=== PATIENT | female | born 1990 | race Caucasian/White ===

== ENCOUNTER 2022-06-30 22:46 | Emergency (ER) | payer OTHER, SELFPAY ==
[2022-06-30 23:04] VITALS: BP 130/85; PULSE 104; RESP 20; TEMP 37.2; O2SAT 98; BMI 38.8
--- NOTE | 2022-07-01 00:39 | CRLHL7_ITS ---
For Patients: As a result of the Century Cures Act, medical imaging exams and procedure reports are released immediately into your electronic medical record. You may view this report before your referring provider. If you have questions, please contact your health care provider. INDICATION: Rectal bleeding.. TECHNIQUE: CT abdomen and pelvis without contrast. COMPARISON: January 30, 2021. FINDINGS: Lower chest: Unremarkable. Liver: Normal in size and attenuation. No suspicious masses. Gallbladder and bile ducts: No stones or inflammation. No biliary dilatation. Pancreas: Unremarkable. No mass or inflammation. Spleen: Normal in size. No masses. Few scattered calcifications likely related to prior granulomatous disease. Adrenal glands: Normal in size. No nodules. Kidneys: Normal in size. No suspicious masses, or hydronephrosis. Punctate nonobstructing stone at the inferior pole of the right kidney. GI tract: Unremarkable. Normal in caliber. No sign of mass or inflammation. Normal appendix. Vasculature: Abdominal aorta is normal in caliber. Lymph nodes: No lymphadenopathy. Peritoneum/Abdominal Wall: Unremarkable. No sign of mass or infiltration. No free air or significant free fluid. Pelvis: Unremarkable. No pelvic masses. Bones: Unremarkable for age. IMPRESSION: No findings to explain rectal bleeding. Punctate nonobstructing stone in the right kidney. Please note that all CT scans at this facility use dose modulation, iterative reconstruction, and/or weight-based dosing when appropriate to reduce radiation dose to as low as reasonably achievable. Dictated by Kaitlyn Soriano MD @ 07/01/2022 1:53:33 AM (Electronically Signed)
--- NOTE | 2022-07-01 00:40 | ED.GENADULT ---
HPI - General Adult General Chief complaint: Abdominal Pain Stated complaint: Abdominal pain and bloody stool Time Seen by Provider: 07/01/22 00:25 History of Present Illness HPI narrative: Patient is a 32-year-old female who presents to the emergency department about 11:00 p.m. with complaints of two days of intermittent abdominal pain and a couple of episodes of bright red rectal bleeding. The bleeding began after a large hard bowel movement two days ago. She is generally not constipated. She has had couple other stools with some bright red blood and blood on the paper when she wipes. No melena. She has some nausea but no vomiting. No fevers or chills. She has continued to eat and drink well. There is some pain with defecation. No symptoms of anemia. Related Data Home Medications Medication Instructions Recorded Confirmed No Known Home Medications 06/30/22 06/30/22 Allergies Allergy/AdvReac Type Severity Reaction Status Date / Time No Known Drug Allergies Allergy Verified 06/30/22 22:57 PFSH PFSH Social History Smoking Status: Never smoker Do you use any of these nicotine containing products: None Second hand tobacco smoke exposure: No How often do you have a drink containing alcohol: monthly or less How many standard drinks containing alcohol do you have on a typical day: 1 or 2 How often do you have six or more drinks on one occasion: Never AUDIT-C Alcohol total score: 1 Non-prescribed substance use: denies use service: No Exam Narrative: Exam Narrative: Vitals noted. HEENT: Conjunctiva clear. Neck is supple without adenopathy, thyromegaly, carotid bruit. Lungs: Clear to auscultation in all marti. No wheezes, rales, rhonchi. Heart: Regular rate and rhythm without murmur. Abdomen: Obese, Soft and nontender. No guarding, rigidity, rebound. Bowel sounds are normal. No palpable masses. Extremities: No cyanosis or edema. Good distal pulses. Skin: No abnormalities noted of the exposed skin. Neurologic: Awake, alert, fully oriented. Neurologic exam is nonfocal. Const: Vital Signs, click to edit/add: Vital Signs - 24 hr 06/30/22 23:04 Temperature 98.9 F Pulse Rate [Pulse Oximeter] 104 H Respiratory Rate 20 Blood Pressure [Ri ght Forearm] 130/85 Pulse Oximetry 98 Oxygen Delivery Me thod Room Air Course Course Hospital Course: Patient is seen and examined. Labs and CT of her abdomen are ordered. Reevaluation(s) Reevaluation #1: CT is normal. Labs are also normal. No evidence of bleeding while here in the department. She asked for and received a work note for today. Vital Signs Vital signs: Initial Vital Signs Temperature 98.9 F 06/30/22 23:04 Temperature Source Temporal Artery Scan 06/30/22 23:04 Pulse Rate 104 H 06/30/22 23:04 Pulse Rhythm 06/30/22 23:04 Respiratory Rate 20 06/30/22 23:04 Blood Pressure 130/85 06/30/22 23:04 Blood Pressure Mean 100 06/30/22 23:04 Blood Pressure Position Supine 06/30/22 23:04 Pulse Oximetry 98 06/30/22 23:04 Oxygen Delivery Method 06/30/22 23:04 Vital Signs Temperature 98.9 F 06/30/22 23:04 Pulse Rate 104 H 06/30/22 23:04 Respiratory Rate 20 06/30/22 23:04 Blood Pressure 130/85 06/30/22 23:04 Pulse Oximetry 98 06/30/22 23:04 Oxygen Delivery Method 06/30/22 23:04 Temperature 98.9 F 06/30/22 23:04 Pulse Rate 104 H 06/30/22 23:04 Respiratory Rate 20 06/30/22 23:04 Blood Pressure 130/85 06/30/22 23:04 Pulse Oximetry 98 06/30/22 23:04 Oxygen Delivery Method 06/30/22 23:04 Medical Decision Making Lab Data Labs: Lab Results 07/01/22 07/01/22 Range/Units 00:45 00:45 WBC 13.98 H (4.50-11.00) K/uL RBC 4.44 (4.00-5.20) m/uL Hgb 12.4 (12.0-16.0) gm/dL Hct 37.9 (33.0-51.0) % MCV 85 (80-100) fL MCH 28 (26-34) pg MCHC 33 (32-36) gm/dL RDW Coeff of Jamel 13.1 (11.5-15.5) % Plt Count 412 (140-440) K/uL Neut % (Auto) 74.6 H (42.0-72.0) % Lymph % (Auto) 19.5 L (20-44) % Sterling % (Auto) 5.4 (0.0-11.0) % Eos % (Auto) 0.3 (0.0-7.0) % Baso % (Auto) 0.1 (0.0-3.0) % Neut # (Auto) 10.40 H (1.7-7.0) K/uL Lymph # (Auto) 2.70 (0.90-2.90) K/uL Sterling # (Auto) 0.80 (0.00-0.90) K/UL Eos # (Auto) 0.00 (0.00-0.50) K/uL Baso # (Auto) 0.00 (0.00-0.30) K/uL Abs Immat Gran (auto) 0.02 (0.00-0.30) K/uL Sodium 139 (135-149) mmol/L Potassium 3.7 (3.6-5.1) mmol/L Chloride 104 (96-114) mmol/L Carbon Dioxide 26 (20-32) mmol/L BUN 8 (5-24) mg/dL Creatinine 0.7 (0.5-1.5) mg/dL Estimated Creat Clear 111.16 Estimated GFR 117 ml/min Glucose 124 H (60-115) mg/dL Calcium 9.1 (8.4-10.6) mg/dL Total Bilirubin 0.2 (0.1-1.5) mg/dL Direct Bilirubin 0.2 (0.0-0.5) mg/dL AST 19 (12-35) U/L ALT 16 (4-35) U/L Alkaline Phosphatase 97 (40-150) U/L C-Reactive Protein 1.2 H (0.5-1.0) mg/dL Total Protein 7.8 (6.0-8.3) g/dL Albumin 4.1 (3.3-5.0) g/dL Discharge Plan Discharge Clinical Impression: BRBPR (bright red blood per rectum), Abdominal pain Patient Disposition: Home, Self-Care Condition: Improved Additional Instructions: Consider an [id number] stool softener and fiber supplement. Push fluids. Avoid straining. If bleeding persists may need to see surgeon and consider a colonoscopy. Activity Level: No Restrictions Discharge Diet: Regular Prescriptions: No Action No Known Home Medications Follow Up/Referrals: Sai Blake MD [Primary Care Provider] - Stand Alone Forms: [employer] Info Instructions
[2022-07-01 00:54] LABS: Basophils Percent Auto 0.1 % (0.0-3.0); Eosinophils Percent Auto 0.3 % (0.0-7.0); Hematocrit 37.9 % (33.0-51.0); Hemoglobin* 12.4 gm/dL (12.0-16.0); Immature Granulocytes Abs Auto 0.02 K/uL (0.00-0.30); Lymphocytes Percent Auto 19.5 % (20-44); Mean Corpuscular HGB Conc 33 gm/dL (32-36); Mean Corpuscular Hemoglobin 28 pg (26-34); Mean Corpuscular Volume 85 fL (80-100); Monocytes Percent Auto 5.4 % (0.0-11.0); Neutrophils Percent Auto 74.6 % (42.0-72.0); Platelet Count* 412 K/uL (140-440); RDW Coefficient of Variation % 13.1 % (11.5-15.5); Red Blood Count 4.44 m/uL (4.00-5.20); White Blood Count* 13.98 K/uL (4.50-11.00)
[2022-07-01 00:57] LABS: Slide Review Reflex No
[2022-07-01 01:00] VITALS: BP 112/71; PULSE 91; RESP 16; O2SAT 98
[2022-07-01 01:09] LABS: Albumin* 4.1 g/dL (3.3-5.0); Chloride* 104 mmol/L (96-114); Sodium* 139 mmol/L (135-149)
[2022-07-01 01:10] LABS: Potassium* 3.7 mmol/L (3.6-5.1)
[2022-07-01 01:11] LABS: Creatinine* 0.7 mg/dL (0.5-1.5); Est. Creatinine Clearance* 111.16; Estimated Glomerular Filt Rate 117 ml/min
[2022-07-01 01:12] LABS: Alanine Aminotransferase* 16 U/L (4-35); Alkaline Phosphatase* 97 U/L (40-150); Aspartate Amino Transferase* 19 U/L (12-35); Bilirubin Direct* 0.2 mg/dL (0.0-0.5); Bilirubin Total* 0.2 mg/dL (0.1-1.5); Blood Urea Nitrogen* 8 mg/dL (5-24); Glucose* 124 mg/dL (60-115); Total Protein* 7.8 g/dL (6.0-8.3)
[2022-07-01 01:13] LABS: Calcium* 9.1 mg/dL (8.4-10.6)
[2022-07-01 01:15] LABS: C Reactive Protein* 1.2 mg/dL (0.5-1.0)
[2022-07-01 01:27] LABS: Carbon Dioxide* 26 mmol/L (20-32)
[2022-07-01 02:00] VITALS: BP 118/68; PULSE 86; RESP 16; O2SAT 99
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
--- OUTSIDE RECORDS SUMMARY | 2022-07-08 00:40 | XMS_ITS ---
:1990 Author Care Team Providers Name Role Phone Jo Ann West Primary Care Provider Unavailable Allergies Code Code System Name Reaction Severity Status Onset NKDA ? Medications Name Status Start Date Stop Date ? ? prednisone 10 mg tablet Active ? Not avai lable Problems None recorded. Procedures None recorded. Results Lab Results None recorded. Past Encounters 12/23/2021 Strain of Muscle of Left Shoulder Jo Ann West PA-C: [address], [place] [address], [place]. Social History None recorded. Vaccine List Vaccine Type COVID-19, mRNA, LNP-S, PF, 100 mcg/0.5 m L dose (Moderna) 03/24/2021 04/25/2021 DT (pediatric) 12/10/2000 DTaP 02/06/1994 DTP 1989 1989 1989 12/12/1990 Hep B, adolescent or pediatric 02/14/1999 03/17/1999 06/16/1999 Hib (PRP-D) 03/03/1991 influenza, injectable, quadrivalent, pre servative free 09/20/2020 MMR 05/27/1990 12/10/2000 OPV 1989 1989 12/12/1990 02/06/1994 Tdap 07/03/2014 Plan of Care Reminders Provider Appointments None recorded. ? ? Lab None recorded. ? ? Referral None recorded. ? ? Procedures None recorded. ? ? Surgeries None recorded. ? ? Imaging None recorded. ? ? Vitals Blood Pressure 129/96 mm[Hg]
--- OUTSIDE RECORDS SUMMARY | 2022-07-08 00:40 | XMS_ITS | Encounter Summary ---
:1990 Author Organization [facility] Address [address] [place] [address] Care Team Providers Name Role Phone No Ref-Primary, Physician Primary Care Provider [phone] Encounter Details Date Type Department Care Team Description 09/22/2019 Travel Social History Tobacco Use Types Packs/Day Years Used Date Never Smoker 0 Smokeless Tobacco: Never Used Alcohol Use Standard Drinks/Week Comments Not Currently 0 (1 standard drink = 0.6 oz pure alcoho l) Sex Assigned at Date Recorded Not on file documented as of this encounter Plan of Treatment Not on filedocumented as of this encounter Visit Diagnoses Not on filedocumented in this encounter Care Teams Ticket Agent Relationship Specialty Start Date End Date No Ref-Primary, Physician PCP - General 09/22/19 documented as of this encounter
== END 2022-07-01 02:29 | disposition home or self-care (01) ==
PROVIDERS: Emergency Provider Family Medicine; PCP Family Medicine
DX: R10.9 Unspecified abdominal pain (principal); K62.5 Hemorrhage of anus and rectum
CPT/HCPCS: 36415; 74176; 80048; 80076; 85025; 86140; 99283; 99284